=== PATIENT | female | born 1940 | race Caucasian/White ===

== ENCOUNTER → 2017-03-20 | Outpatient (REF) | payer OTHER, MEDICARE ==
[2017-03-20 13:45] LABS: FERRITIN 364 NG/ML (8-252); TOTAL IRON BINDING CAPACITY 292 UG/DL (250-450); URIC ACID 9.2 MG/DL (2.6-6.0)
== END ==
LOC: M LABDRAW1 11:28
PROVIDERS: ATTEND Internal Medicine Rheumatology
DX: M35.9 Systemic involvement of connective tissue, unspecified (principal); N18.3 Chronic kidney disease, stage 3 (moderate); E83.110 Hereditary hemochromatosis; M1A.0710 Idiopathic chronic gout, right ankle and foot, without tophus (tophi); Z79.899 Other long term (current) drug therapy

== ENCOUNTER → 2018-10-25 | Outpatient (CLI) | payer OTHER, MEDICARE ==
--- NOTE | 2018-10-30 23:22 | SLEEPCENT ---
DATE OF PROCEDURE: 10/25/2018 INTERPRETATION: Nocturnal polysomnography was performed for the evaluation of sleep apnea syndrome symptoms consisting of snoring, observed apnea, and nonrestorative sleep. A total of 7 hours and 52 minutes of data was reviewed with 311 minutes of sleep identified. Sleep latency was 16.5 minutes. Rapid eye movement (REM) latency was 298.5 minutes. No slow wave sleep was identified. Sleep efficiency was decreased at 67.2%. EKG showed sinus bradycardia with an average heart rate of 56 beats per minute. Speeding and slowing was noted surrounding some respiratory events. No epileptiform discharge observed. There were 423 respiratory events identified of 10 seconds in duration or longer for an apnea-hypopnea index (AHI) of 81.6. The events were predominantly obstructive apnea/hypopneas or mixed events. Mean oxygen saturation for the study was 91% with a minimum recorded value of 74%. Arousal index was increased at 46.3 with the majority of arousals breathing related. Periodic limb movement index was 15.4. Because of the severity of the disease, an attempt was made to start her on continuous positive airway pressure (CPAP) therapy. She was started on CPAP at 4 cm H2O that went as high as 7 cmH2O, but she could not tolerate the device and it was discontinued. IMPRESSION: 1. Obstructive sleep apnea, severe. 2. Significant desaturations, occurring in REM sleep. 3. Periodic limb movements, mild. RECOMMENDATIONS: Recommend the patient return to the sleep disorder center to spend the entire night working on titration. However, before scheduling that study, conversation should be had with the patient regarding her intolerance to the CPAP device to see if anything can be optimized. Pending this evaluation, care should be taken when operating motor vehicles and alcohol and sedative usage should be avoided. OZ
== END ==
LOC: M SLEEP 19:28
PROVIDERS: ATTEND Internal Medicine Pulmonary Disease
DX: G47.33 Obstructive sleep apnea (adult) (pediatric) (principal); G47.61 Periodic limb movement disorder

== ENCOUNTER → 2018-12-06 | Outpatient (CLI) | payer OTHER, MEDICARE ==
--- NOTE | 2018-12-18 10:12 | SLEEPCENT ---
DATE OF STUDY: 12/06/2018 REFERRING PROVIDER: Renate Almanzar MD INTERPRETATION: Nocturnal polysomnography was performed for the determination of pressure therapy in this patient with severe obstructive sleep apnea with an apnea-hypopnea index (AHI) of 81.6. An attempt had been made to have a split-night study. That was not successful. She, therefore, returned to the laboratory for determination of pressure therapy. Her sleep apnea syndrome symptoms consisted of snoring, observed apnea, and nonrestorative sleep. A total of 7 hours and 20 minutes of data was reviewed for the entire titration with 296.5 minutes of sleep identified. Sleep latency was 11.5 minutes. Rapid eye movement (REM) latency was 32.5 minutes. No slow-wave sleep was identified. Sleep efficiency was decreased at 69.4. Electrocardiogram (EKG) showed normal sinus rhythm with an average heart rate of 62 beats per minute. Speeding and slowing was noted surrounding some respiratory events. No epileptiform discharge observed. The patient had been fit with a Lotarisus full face mask of small size, 4 cm of water pressure was applied to the circuit, and the lights were dimmed. Continuous positive airway pressure (CPAP) begun at 4 cm of water pressure was taken to a high of 12 cm of water pressure. However, she did not tolerate the device, and no optimal pressure was identified. Attempts were made to decrease the CPAP pressure. Again, these were unsuccessful. She was then changed to bilevel therapy, initially with an inspiratory positive airway pressure (IPAP) of 13 cm of H2O and an expiratory positive airway pressure (EPAP) of 9 cm H2O. This was increased to an IPAP of 14 cm H2O and an EPAP of 10 cm H2O which appeared optimal. She did have a few central events, and a rate of 6 was added to the circuit. Additionally, an attempt was made to increase her bilevel device to 15/11. However, despite these interventions, she still appeared to do best on an IPAP of 14 and an EPAP of 10, and her central events did not seem significant. On the pressure of 14/10, her apnea-hypopnea index (AHI) was 0, as was her respiratory arousal index (FLEMING). Oxygen saturation in the 90 percentile. No significant periodic limb movements. IMPRESSION: Obstructive sleep apnea, severe, reasonably palliated on bilevel therapy with an IPAP of 14 cm H2O and an EPAP of 10 cm of H2O. On this pressure, REM sleep was observed. No supine sleep was seen on this pressure, and no supine sleep was seen for the entire titration. RECOMMENDATIONS: Recommend continuation of bilevel therapy at the above pressure via a small [employer] Simplus full face mask or mask of her preference. Clinical correlation will be necessary to ensure eradication of symptoms. MTDD
== END ==
LOC: M SLEEP 20:00
PROVIDERS: ATTEND Internal Medicine Pulmonary Disease
DX: G47.33 Obstructive sleep apnea (adult) (pediatric) (principal)

== ENCOUNTER → 2019-05-27 | Outpatient (REF) | payer OTHER, MEDICARE | LOC: M LAB REF 16:40 | PROVIDERS: ATTEND Nurse Practitioner Family | DX: D64.9 Anemia, unspecified (principal) ==

== ENCOUNTER → 2019-06-26 | Outpatient (REF) | payer OTHER, MEDICARE | LOC: M LAB REF 18:31 | PROVIDERS: ATTEND Dermatology | DX: L57.0 Actinic keratosis (principal) ==

== ENCOUNTER → 2019-07-31 | Outpatient (REF) | payer OTHER, MEDICARE | LOC: M LAB REF 17:32 | PROVIDERS: ATTEND Dermatology | DX: D18.01 Hemangioma of skin and subcutaneous tissue (principal) ==

== ENCOUNTER → 2020-10-28 | Outpatient (CLI) | payer MEDICARE, OTHER ==
--- NOTE | 2020-10-28 16:59 | REP ---
INDICATION: CLAUDICATION. COMPARISON: None. TECHNIQUE: Bilateral lower extremity arterial Doppler ultrasound. FINDINGS: Ankle brachial indices are normal measured 1.3 on the right and 1.4 on the left. These may be overestimated due to calcific vessels. Relatively normal triphasic and biphasic arterial Doppler waveforms are noted bilaterally. Mild to moderate plaquing is seen. No focal stenosis or occlusion is seen. Right lower extremity arterial Doppler velocity chart: Right [employer] PSV 99 cm/S Profundal 118 Proximal SFA 106 Mid SFA 112 Distal SFA 93 Popliteal 104/118 Proximal JANICE 110 Tibial-peroneal trunk 86 Proximal LENS MOLDER 68 Distal LENS MOLDER 51 Distal JANICE 75 Left lower extremity arterial Doppler velocity chart: Left [employer] PSV 105 cm/S Profundal 101 Proximal SFA 101 Mid SFA 92 Distal SFA 101 Popliteal 92/70 Proximal JANICE 136 Tibial-peroneal trunk 76 Proximal LENS MOLDER 64 Distal LENS MOLDER 71 Distal JANICE 89 IMPRESSION: Mild to moderate plaquing. No high-grade stenosis or occlusion. <Electronically signed by Kai Leigh > 10/28/20 [id number]
== END ==
LOC: M RAD 13:58
PROVIDERS: ATTEND Physician Assistant
DX: I70.213 Atherosclerosis of native arteries of extremities with intermittent claudication, bilateral legs (principal)

== ENCOUNTER → 2021-11-08 | Outpatient (CLI) | payer MEDICARE, OTHER | LOC: M LABSMTC 09:50 | PROVIDERS: ATTEND Anesthesiology | DX: Z11.52 Encounter for screening for COVID-19 (principal); Z20.822 Contact with and (suspected) exposure to COVID-19 ==

== ENCOUNTER 2021-11-13 06:53 | Day surgery (SDC) | payer MEDICARE, OTHER ==
[~2021-11-13] VITALS: Ht 162.6 cm; Wt 88.0 kg
[~2021-11-13 06:53] MED LIST: ARTH650T11 PO; ASPI81TA26 PO; EZET10TA21 PO; FLON1SPR; GABA-282 PO; JANU100T PO; LOSA25TA13 PO; MAGN400T35 PO; NS 1,000 ML IV ONE; OMEP1CAP73 PO; PENT400T47 PO; SIMV10TA21 PO; VASC1CAP2 PO; VITMTA PO; ZYLO100T2 PO; medical marijuana
[2021-11-13] MEDS ORDERED: fentaNYL 100 MCG/2 ML INJECTION As Ordered ONE (07:19)
[2021-11-13] MEDS ORDERED: propofoL 200 MG/20 ML VIAL As Ordered ONE (07:20)
[2021-11-13] MEDS ORDERED: LIDOCAINE 2% 100MG/5ML SDV (FOR ANES.) As Ordered ONE (07:20)
[2021-11-13 08:00] VITALS: BP 120/65
== END 2021-11-13 08:09 | disposition home or self-care (01) ==
LOC: M OPP 06:53
PROVIDERS: ATTEND Internal Medicine Gastroenterology
DX: R13.10 Dysphagia, unspecified (principal); K22.2 Esophageal obstruction; R93.3 Abnormal findings on diagnostic imaging of other parts of digestive tract; K44.9 Diaphragmatic hernia without obstruction or gangrene; E11.9 Type 2 diabetes mellitus without complications; G47.30 Sleep apnea, unspecified; Z79.82 Long term (current) use of aspirin; Z79.84 Long term (current) use of oral hypoglycemic drugs; Z79.899 Other long term (current) drug therapy; Z88.8 Allergy status to other drugs, medicaments and biological substances
CPT/HCPCS: 43235; J3010

== ENCOUNTER → 2021-12-06 | Outpatient (CLI) | payer MEDICARE, OTHER ==
[~2021-12-06] MED LIST changes: -NS 1,000 ML IV ONE
== END ==
LOC: M RAD 09:10
PROVIDERS: ATTEND Family Medicine
DX: I73.89 Other specified peripheral vascular diseases (principal); I77.1 Stricture of artery

== ENCOUNTER → 2022-01-23 | Outpatient (CLI) | payer MEDICARE, OTHER ==
[~2022-01-23] MED LIST changes: +ISOVUE-370 76% 100ML VIAL As Ordered ONE
== END ==
LOC: M RAD 14:26
PROVIDERS: ATTEND Family Medicine
DX: I73.89 Other specified peripheral vascular diseases (principal); M17.11 Unilateral primary osteoarthritis, right knee
CPT/HCPCS: 73706; Q9967

== ENCOUNTER → 2022-08-06 | Outpatient (REF) | payer MEDICARE, OTHER ==
[~2022-08-06] MED LIST changes: -ISOVUE-370 76% 100ML VIAL As Ordered ONE
== END ==
LOC: M LAB REF 15:47
PROVIDERS: ATTEND Specialist
DX: D64.9 Anemia, unspecified (principal); D69.6 Thrombocytopenia, unspecified

== ENCOUNTER → 2022-08-20 | Outpatient (CLI) | payer MEDICARE, OTHER | LOC: M RAD 09:18 | PROVIDERS: ATTEND Internal Medicine | DX: D69.6 Thrombocytopenia, unspecified (principal); D64.9 Anemia, unspecified; K76.0 Fatty (change of) liver, not elsewhere classified; R16.1 Splenomegaly, not elsewhere classified; N28.1 Cyst of kidney, acquired ==

== ENCOUNTER → 2024-04-08 | Outpatient (REF) | payer MEDICARE, OTHER ==
[2024-04-08 18:42] LABS: IRON (FE) 59 UG/DL (50-170); PERCENT SATURATION 19.8 % (13.2-45.0); TOTAL IRON BINDING CAPACITY 298 UG/DL (250-425)
[2024-04-08 18:44] LABS: FOLATE > 24.0 NG/ML (>5.4); VITAMIN B12 LEVEL 721 PG/ML (211-911)
[2024-04-08 18:45] LABS: FERRITIN 175.6 NG/ML (7.3-270.7)
== END ==
LOC: M LAB REF 17:31
PROVIDERS: ATTEND Nurse Practitioner Family
DX: D50.9 Iron deficiency anemia, unspecified (principal)